=== PATIENT | male | born 1970 | race Caucasian/White ===

== ENCOUNTER 2020-12-17 01:52 | Emergency (ER) | payer OTHER ==
[2020-12-17] MEDS ORDERED: fentaNYL CITRATE 100 MCG/2 ML VL IV ONE ×2 (03:30→05:30)
[2020-12-17] MEDS ORDERED: ONDANSETRON HCL 4 MG/2 ML VIAL IV ONE (03:30)
[2020-12-17] MEDS ORDERED: PROPOFOL 10 MG/ML 20 ML IV ONE (04:00)
[2020-12-17] MEDS ORDERED: PROPOFOL 100 ML IV ONE (04:08)
[2020-12-17] MEDS ORDERED: fentaNYL CITRATE 100 MCG/2 ML VL ONE (05:21)
[2020-12-17 10:00] VITALS: BP 137/95
== END 2020-12-17 10:45 | disposition home or self-care (01) ==
LOC: EDBD 01:52 → ER 01:58
DX: S52.502A Unspecified fracture of the lower end of left radius, initial encounter for closed fracture (principal); X58.XXXA Exposure to other specified factors, initial encounter; Y93.89 Activity, other specified; Y92.89 Other specified places as the place of occurrence of the external cause; Y99.8 Other external cause status
CPT/HCPCS: 25605; 73090; 73100; 96374; 96375; 96376; 99152; 99153; 99285; J2405; J2704; J3010; J7030